=== PATIENT | male | born 1985 | race Caucasian/White ===

== ENCOUNTER → 2016-06-15 | Outpatient (CLI) | payer BC ==
[2016-06-15 13:16] LABS: CHLORIDE,CL 108 mmol/L (98-110); SODIUM,NA 142 mmol/L (136-146)
== END ==
LOC: MW.CHFP 11:29
PROVIDERS: ATTEND Student in an Organized Health Care Education/Training Program
DX: Z00.00 Encounter for general adult medical examination without abnormal findings (principal)
CPT/HCPCS: 36415; 80053; 80061; 84443; 85027

== ENCOUNTER 2020-08-20 14:59 | Observation (INO) | payer BC ==
[2020-08-20] MEDS: Morphine 2 MG/ML SYRINGE IVPUSH PRN ×3 (16:38→22:54)
[2020-08-20] MEDS: Piperacillin/Tazobactam 3.375 GM in Sodium Chloride 0.9% 50 ML IV SCH ×2 (16:43→22:57)
[2020-08-20] MEDS: Lactated Ringers 1,000 ML IV SCH (17:15)
[2020-08-21] MEDS: Lactated Ringers 1,000 ML IV SCH (02:14)
[2020-08-21] MEDS: Piperacillin/Tazobactam 3.375 GM in Sodium Chloride 0.9% 50 ML IV SCH ×3 (05:01→17:12)
[2020-08-21] MEDS ORDERED: Midazolam 1 MG/ML 2 ML SDV ONE (06:57)
[2020-08-21] MEDS ORDERED: Propofol 200 MG/20 ML SDV ONE (06:57)
[2020-08-21] MEDS ORDERED: fentaNYL 250 MCG/5 ML SDV ONE ×2 (06:57→08:36)
[2020-08-21] MEDS ORDERED: Lidocaine 2% 5 ML SDV ONE (06:58)
[2020-08-21] MEDS ORDERED: Ondansetron 4 MG/2 ML SDV ONE (06:58)
[2020-08-21] MEDS ORDERED: Sugammadex Sodium 200 MG/2 ML VIAL ONE (06:58)
[2020-08-21] MEDS ORDERED: Glycopyrrolate 0.2 MG/ML SDV ONE (06:58)
[2020-08-21] MEDS ORDERED: Rocuronium Bromide 50 MG/5 ML Syringe ONE ×2 (06:58→08:09)
[2020-08-21] MEDS ORDERED: Ketorolac 30 MG/ML SDV ONE (06:58)
[2020-08-21] MEDS ORDERED: Indocyanine Green 25 MG SDV ONE (07:19)
--- NOTE | 2020-08-21 07:29 | PCM.PREANE ---
Preanesthetic Assessment - Anesthesia/Transfusion/Family Hx Anesthesia History: Prior Anesthesia Without Reaction Family History of Anesthesia Reaction: No Transfusion History: No Prior Transfusion(s) - Physical Assessment NPO Status Date: 08/21/20 NPO Status Time: 00:01 Vital Signs: Last Vital Signs Temp 98.2 F 08/21/20 04:00 Pulse 80 08/21/20 04:00 Resp 18 08/21/20 04:00 BP 113/65 08/21/20 04:00 Pulse Ox 98 08/21/20 04:00 Height: 6 ft Weight: 287 lb 9.6 oz ASA Class: 2 Airway Class: Mallampati = 3 Dentition: Reports: Normal Dentition ROM/Head Extension: Limited/Partial Lungs: Normal Respiratory Effort Cardiovascular: Regular Rhythm - Allergies Allergies/Adverse Reactions: Allergies Allergy/AdvReac Type Severity Reaction Status Date / Time ceftriaxone sodium Allergy Hives Verified 08/20/20 15:47 [From Rocephin] - Acknowledgements Anesthesia Type Planned: General Anesthesia Pt an Appropriate Candidate for the Planned Anesthesia: Yes Alternatives and Risks of Anesthesia Discussed w Pt/Guardian: Yes Pt/Guardian Understands and Agrees with Anesthesia Plan: Yes Additional Comments: nopo after mn hilary no cv problems tob none etoh rare hayfever obesity bmi 39 par no questions PreAnesthesia Questionnaire Gastrointestinal History: Reports: GERD Other Gastrointestinal History: heartburn Endocrine/Metabolic History: Reports: Obesity/BMI 30+ - Infectious Disease History Infectious Disease History: Reports: Chicken Pox Other Infectious Disease History: Chicken pox as a child - Past Surgical History Other Musculoskeletal Surgeries/Procedures:: Right forearm surgery for fx with steel plate and 7 screws; knee surgery for torn meniscus - SUBSTANCE USE Tobacco Use Status *Q: Never Tobacco User Second Hand Smoke Exposure: No Recreational Drug Use History: No - HOME MEDS Home Medications: Home Meds Omeprazole [Prilosec] 20 mg PO DAILY 08/19/14 [History] - CURRENT (IN HOUSE) MEDS Current Meds: Current Medications Lactated Ringer's (Ringers, Lactated) 1,000 mls @ 125 mls/hr IV ASDIRECTED [facility] Last Admin: 08/21/20 02:14 Dose: 125 mls/hr Documented by: Piperacillin Sod/Tazobactam (Sod 3.375 gm/ Sodium Chloride) 50 mls @ 100 mls/hr IV Q6H [facility] Last Admin: 08/21/20 05:01 Dose: 100 mls/hr Documented by: Morphine Sulfate (Morphine 2 Mg/Ml Syringe) 2 mg IVPUSH Q1H PRN PRN Reason: Pain (severe 7-10) Last Admin: 08/20/20 22:54 Dose: 2 mg Documented by: Discontinued Medications Fentanyl (Fentanyl 250 Mcg/5 Ml Sdv) Confirm Administered Dose 250 mcg .ROUTE .STK-MED ONE Stop: 08/21/20 06:58 Glycopyrrolate (Glycopyrrolate 0.2 Mg/Ml Sdv) Confirm Administered Dose 0.2 mg .ROUTE .STK-MED ONE Stop: 08/21/20 06:59 Indocyanine Green (Indocyanine Green 25 Mg Sdv) Confirm Administered Dose 25 mg .ROUTE .STK-MED ONE Stop: 08/21/20 07:20 Ketorolac Tromethamine (Ketorolac 30 Mg/Ml Sdv) Confirm Administered Dose 30 mg .ROUTE .STK-MED ONE Stop: 08/21/20 06:59 Lidocaine (Lidocaine 2% 5 Ml Sdv) Confirm Administered Dose 5 ml .ROUTE .STK-MED ONE Stop: 08/21/20 06:59 Midazolam HCl (Midazolam 1 Mg/Ml 2 Ml Sdv) Confirm Administered Dose 2 mg .ROUTE .STK-MED ONE Stop: 08/21/20 06:58 Ondansetron HCl (Ondansetron 4 Mg/2 Ml Sdv) Confirm Administered Dose 4 mg .ROUTE .STK-MED ONE Stop: 08/21/20 06:59 Propofol (Propofol 200 Mg/20 Ml Sdv) Confirm Administered Dose 200 mg .ROUTE .STK-MED ONE Stop: 08/21/20 06:58 Rocuronium [place] (Rocuronium [place] 50 Mg/5 Ml Syringe) Confirm Administered Dose 50 mg .ROUTE .STK-MED ONE Stop: 08/21/20 06:59 Sugammadex Sodium (Sugammadex Sodium 200 Mg/2 Ml Vial) Confirm Administered Dose 200 mg .ROUTE .STK-MED ONE Stop: 08/21/20 06:59
[2020-08-21] MEDS ORDERED: ceFAZolin 1 GM Vial ONE (07:32)
[2020-08-21] MEDS ORDERED: Bupivacaine 0.5% 30 ML SDV ONE (07:32)
[2020-08-21] MEDS ORDERED: Acetaminophen 1,000 MG in Premix Bag 1 BAG IV PRN (08:27)
[2020-08-21] MEDS ORDERED: fentaNYL 100 MCG/2 ML SDV IVPUSH PRN (08:27)
[2020-08-21] MEDS ORDERED: Acetaminophen 325 MG Tab PO PRN (10:00)
[2020-08-21] MEDS ORDERED: Ondansetron 4 MG/2 ML SDV IVPUSH PRN (10:00)
[2020-08-21] MEDS ORDERED: Lactated Ringers 1,000 ML IV SCH (10:00)
--- NOTE | 2020-08-21 10:09 | PCM.OPNOTE ---
- General Post-Op/Procedure Note Date of Surgery/Procedure: 08/21/20 Operative Procedure(s): Laparoscopic cholecystectomy Pre Op Diagnosis: Acute cholecystitis with cholelithiasis Post-Op Diagnosis: Severe acute cholecystitis with cholelithiasis Anesthesia Technique: General ET Tube (ASA II) Primary Surgeon: Nick Howard Fluid Replacement, Intraop: 2,000 Output, Urine Amount: 200 EBL in mLs: 50 Condition: Good Free Text/Narrative:: Intake & Output 08/20/20 08/21/20 08/21/20 19:59 03:59 11:59 Intake Total 360 450 Output Total 550 1680 Balance -190 -1230 DICTATION 799063 CPT CODE 93096
[2020-08-21] MEDS: Morphine 2 MG/ML SYRINGE IVPUSH PRN ×2 (10:37→13:33)
--- NOTE | 2020-08-21 10:57 | PCM.POSTAN ---
POST ANESTHESIA ASSESSMENT - MENTAL STATUS Mental Status: Alert (no anesthetic problems), Oriented - VITAL SIGNS Vital Signs: Last Vital Signs Temp 98.2 F 08/21/20 10:05 Pulse 65 08/21/20 10:50 Resp 16 08/21/20 10:50 BP 110/66 08/21/20 10:50 Pulse Ox 96 08/21/20 10:50 - RESPIRATORY Respiratory Status: Respiratory Rate WNL, Airway Patent, O2 Saturation Stable - CARDIOVASCULAR CV Status: Pulse Rate WNL, Blood Pressure Stable - GASTROINTESTINAL GI Status: No Symptoms - POST OP HYDRATION Hydration Status: Adequate & Stable
[2020-08-21] MEDS: Acetaminophen/oxyCODONE 325-5 MG Tab PO PRN (20:15)
[2020-08-22] MEDS: Morphine 2 MG/ML SYRINGE IVPUSH PRN (00:13)
[2020-08-22] MEDS: Acetaminophen/oxyCODONE 325-5 MG Tab PO PRN ×2 (03:31→09:31)
--- NOTE | 2020-08-22 07:03 | PCM48HPAN ---
Post Anesthesia Note - EVALUATION WITHIN 48HRS OF ANESTHETIC Vital Signs in Normal Range: Yes Patient Participated in Evaluation: Yes Respiratory Function Stable: Yes Airway Patent: Yes Cardiovascular Function Stable: Yes Hydration Status Stable: Yes Pain Control Satisfactory: Yes Nausea and Vomiting Control Satisfactory: Yes Mental Status Recovered: Yes Vital Signs: Last Vital Signs Temp 36.8 C 08/22/20 03:34 Pulse 78 08/22/20 03:34 Resp 19 08/22/20 03:34 BP 116/64 08/22/20 03:34 Pulse Ox 94 L 08/22/20 03:34
[2020-08-22 07:27] VITALS: BP 100/57; PULSE 77
--- NOTE | 2020-08-22 09:48 | OR ---
SURGEON: Nick Howard M.D. DATE OF PROCEDURE: 08/21/2020 OPERATION PERFORMED: Laparoscopic cholecystectomy. PRIMARY SURGEON: Nick Howard M.D. ANESTHESIA: General endotracheal. ASA CLASSIFICATION: II. PREOPERATIVE DIAGNOSIS: Acute cholecystitis with cholelithiasis. POSTOPERATIVE DIAGNOSIS: Severe acute cholecystitis with cholelithiasis. ESTIMATED BLOOD LOSS: 50 mL. INTRAOPERATIVE FLUID REPLACEMENT: 2000 mL of crystalloid. INTRAOPERATIVE URINE OUTPUT: 200 mL. DESCRIPTION OF PROCEDURE: The patient was taken to the operating room and placed on the operating table in the supine position. Time-out was called for appropriate identification of the patient and procedure. Thigh-high TEDs and sequential compression boots were placed. Following satisfactory attainment of general endotracheal anesthesia, the West catheter was placed in the patient's urinary bladder. The abdomen was prepped with ChloraPrep solution. Sterile drapes were applied. The skin just above the umbilicus was infiltrated with 0.5% Marcaine solution. Skin incision was made and deepened through the subcutaneous tissue obtaining hemostasis with the use of electrocautery. The Veress needle was introduced into the peritoneal cavity. The saline drop test was positive. Carbon dioxide pneumoperitoneum was established with the release set at 13 cm of water. Once a satisfactory pneumoperitoneum was established, 5 mm camera and port were placed through the supraumbilical incision. The patient was now positioned with his feet down and rolled to the left. Under camera vision, 12 mm subxiphoid, 5 mm midclavicular, and 5 mm anterior axillary ports were placed. Each incision had preemptively been infiltrated with 0.5% Marcaine solution. With all ports in place and the patient positioned with his feet down and rolled to the left, adhesions were taken down from the omentum to the gallbladder. It was necessary to use the Harmonic scalpel to do this. Once that was taken down, the gallbladder was then decompressed with white bile and a minimal amount of purulent material. I was then able to grasp the gallbladder and maneuver it. Again, there were severe inflammatory changes noted. Additional dissection was carried down in the cholecystohepatic triangle and the cystic artery was identified and doubly clipped before division with the laparoscopic Metzenbaum scissors. It was very difficult even with the use of indocyanine green to identify the cystic duct, and it was felt that it was best to do a dome-down technique. Multiple attempts were made to get a good critical view and we always felt we had a good critical view, but nevertheless, using electrocautery, we did a dome-down technique until the gallbladder was completely suspended from the cystic duct. My partner, Dr. Long, did come into the operating room and looked at the anatomy and confirmed position. We again tried to use the indocyanine green, but it did not light up well. Nevertheless, we felt that we had completely encircled and mobilized the cystic duct and this structure was now multiply clipped and divided with the laparoscopic Metzenbaum scissors. The gallbladder was promptly placed in an Endopouch. The right upper quadrant was irrigated with a liter of saline solution and all fluid aspirated. Surgicel was placed into the bed of the gallbladder. There was no significant oozing and no bile was seen coming from the bed of the gallbladder. The right hemidiaphragm was then irrigated with 250 mL of saline containing 20 mL of 0.5% Marcaine solution. Under camera vision, the Endopouch containing gallbladder and subxiphoid port were removed. Again, under camera vision, the 5 mm midclavicular and anterior axillary ports were removed, and finally, the supraumbilical and camera port were removed. The wounds were inspected for hemostasis and there was no bleeding. The supraumbilical and subxiphoid incisions were closed in two layers approximating the subcutaneous tissue with 3-0 Vicryl and the skin with subcuticular 4-0 Monocryl. The anterior axillary and midclavicular incisions were closed with subcuticular 4-0 Monocryl. All incisions were Steri-Stripped and dressed with sterile Tegaderm pads. Sponge, needle, and instrument counts were all correct. The West catheter was removed prior to emergence from anesthesia. Following emergence from anesthesia and extubation, the patient was taken to recovery room in stable condition. ARACELI / SERGIO /[id number]
== END 2020-08-22 11:25 | disposition home or self-care (01) ==
LOC: MW.MS 14:59
PROVIDERS: ADMIT Surgery; ATTEND Surgery
DX: K80.12 Calculus of gallbladder with acute and chronic cholecystitis without obstruction (principal); K21.9 Gastro-esophageal reflux disease without esophagitis; E78.2 Mixed hyperlipidemia; E66.9 Obesity, unspecified; E55.9 Vitamin D deficiency, unspecified; F17.290 Nicotine dependence, other tobacco product, uncomplicated; Z88.8 Allergy status to other drugs, medicaments and biological substances; Z79.899 Other long term (current) drug therapy; Z68.39 Body mass index [BMI] 39.0-39.9, adult
CPT/HCPCS: 47562; A9270; J0131; J1885; J2250; J2270; J2543; J2704; J3010; J3490; J7120; 00790; 88304; 96365; 96366; 96375; 96376; G0378; J0690; J2405

== ENCOUNTER 2020-08-25 04:11 | Emergency (ER) | payer BC ==
[2020-08-25] MEDS ORDERED: Sodium Chloride 0.9% 1,000 ML IV ONE (04:33)
[2020-08-25] MEDS ORDERED: Morphine 4 MG/ML Syringe IVPUSH ONE ×2 (04:33→06:36)
--- NOTE | 2020-08-25 04:37 | EDM.PDOC ---
ED HPI GENERAL MEDICAL PROBLEM - General Chief Complaint: Abdominal Pain Stated Complaint: SICK Time Seen by Provider: 08/25/20 04:27 Source of Information: Reports: Patient History Limitations: Reports: No Limitations - History of Present Illness INITIAL COMMENTS - FREE TEXT/NARRATIVE: Patient is a 35-year-old male who recently had his gallbladder removed 3 days ago presents today for abdominal cramping. Patient this morning had intense cramp this may work with taking deep breaths or talking. Patient states is radiating to the shoulder. Patient denies any nausea vomiting decreased p.o. intake. Patient denies any urinary symptoms as well. Patient denies any fevers or chills or other complaints. right abdomen Pain Score (Numeric/FACES): 10 - Related Data Allergies Allergy/AdvReac Type Severity Reaction Status Date / Time ceftriaxone sodium Allergy Hives Verified 08/25/20 04:25 [From Rocephin] Home Meds: Home Meds Omeprazole [Prilosec] 20 mg PO DAILY 08/19/14 [History] Hydroco/Apap 08/25/20 [History] Past Medical History Gastrointestinal History: Reports: GERD Other Gastrointestinal History: heartburn Endocrine/Metabolic History: Reports: Obesity/BMI 30+ - Infectious Disease History Infectious Disease History: Reports: Chicken Pox Other Infectious Disease History: Chicken pox as a child - Past Surgical History Other Musculoskeletal Surgeries/Procedures:: Right forearm surgery for fx with steel plate and 7 screws; knee surgery for torn meniscus Social & Family History - Family History Family Medical History: No Pertinent Family History - Caffeine Use Caffeine Use: Reports: Coffee, Energy Drinks Caffeine Use Comment: sometimes ED ROS GENERAL - Review of Systems Review Of Systems: See Below Constitutional: Reports: No Symptoms HEENT: Reports: No Symptoms Respiratory: Reports: No Symptoms Cardiovascular: Reports: No Symptoms Endocrine: Reports: No Symptoms GI/Abdominal: Reports: Abdominal Pain : Reports: No Symptoms Musculoskeletal: Reports: No Symptoms Skin: Reports: No Symptoms Neurological: Reports: No Symptoms Psychiatric: Reports: No Symptoms Hematologic/Lymphatic: Reports: No Symptoms Immunologic: Reports: No Symptoms ED EXAM, GI/ABD - Physical Exam Exam: See Below Exam Limited By: No Limitations General Appearance: Alert, WD/WN, Mild Distress Respiratory/Chest: No Respiratory Distress, Lungs Clear, Normal Breath Sounds Cardiovascular: Normal Peripheral Pulses, Regular Rate, Rhythm GI/Abdominal Exam: Normal Bowel Sounds, Soft, Non-Tender Extremities: Normal Inspection Neurological: Alert, Oriented, Normal Cognition #1 Interpretation EKG Date: 08/25/20 Time: 04:12 Rhythm: NSR Rate (Beats/Min): 88 Eure: Normal ST-T: Normal Course - Vital Signs Last Recorded V/S: Last Vital Signs Temp 98.8 F 08/25/20 04:11 Pulse 104 H 08/25/20 06:14 Resp 16 08/25/20 06:14 BP 151/96 H 08/25/20 06:14 Pulse Ox 92 L 08/25/20 06:14 - Orders/Labs/Meds Orders: Active Orders 24 hr Category Date Time Status EKG 12 Lead [EKG Documentation Completion] [RC] STAT Care 08/25/20 04:35 Active Piperacillin/Tazobactam [Piperacil-Tazobact] 3.375 gm Med 08/25/20 06:36 Active Sodium Chloride 0.9% [Normal Saline] 50 ml IV ONETIME Medication Orders Piperacillin Sod/Tazobactam (Sod 3.375 gm/ Sodium Chloride) 50 mls @ 100 mls/hr IV ONETIME ONE Stop: 08/25/20 07:05 Labs: Laboratory Tests 08/25/20 08/25/20 Range/Units 04:16 04:16 WBC 10.51 (4.0-11.0) K/uL RBC 5.02 (4.50-5.90) M/uL Hgb 14.1 (13.0-17.0) g/dL Hct 42.5 (38.0-50.0) % MCV 84.7 (80.0-98.0) fL MCH 28.1 (27.0-32.0) pg MCHC 33.2 (31.0-37.0) g/dL RDW Std Deviation 43.6 (28.0-62.0) fl RDW Coeff of Anil 14 (11.0-15.0) % Plt Count 284 (150-400) K/uL MPV 10.20 (7.40-12.00) fL Neut % (Auto) 67.3 (48.0-80.0) % Lymph % (Auto) 20.9 (16.0-40.0) % [place] % (Auto) 9.7 (0.0-15.0) % Eos % (Auto) 1.9 (0.0-7.0) % Baso % (Auto) 0.2 (0.0-1.5) % Neut # (Auto) 7.1 H (1.4-5.7) K/uL Lymph # (Auto) 2.2 (0.6-2.4) K/uL [place] # (Auto) 1.0 H (0.0-0.8) K/uL Eos # (Auto) 0.2 (0.0-0.7) K/uL Baso # (Auto) 0.0 (0.0-0.1) K/uL Nucleated RBC % 0.0 /100WBC Nucleated RBCs # 0 K/uL Sodium 139 (136-148) mmol/L Potassium 3.6 (3.5-5.1) mmol/L Chloride 101 (98-107) mmol/L Carbon Dioxide 28.3 (21.0-32.0) mmol/L BUN 9 (7.0-18.0) mg/dL Creatinine 1.1 (0.8-1.3) mg/dL Est Cr Clr Drug Dosing 92.41 mL/min Estimated GFR (MDRD) > 60.0 ml/min Glucose 103 (74-106) mg/dL Calcium 9.1 (8.5-10.1) mg/dL Total Bilirubin 0.6 (0.2-1.0) mg/dL AST 18 (15-37) IU/L ALT 29 (14-63) IU/L Alkaline Phosphatase 111 (46-116) U/L Creatine Kinase 47 (26-308) U/L Total Protein 8.0 (6.4-8.2) g/dL Albumin 3.0 L (3.4-5.0) g/dL Globulin 5.0 H (2.6-4.0) g/dL Albumin/Globulin Ratio 0.6 L (0.9-1.6) Lipase 67 L (73-393) U/L Meds: Medications Generic Name Dose Route Start Last Admin Trade Name Freq PRN Reason Stop Dose Admin Piperacillin Sod/Tazobactam 50 mls @ 100 mls/hr 08/25/20 06:36 Sod 3.375 gm/ Sodium Chloride IV 08/25/20 07:05 ONETIME ONE Discontinued Medications Generic Name Dose Route Start Last Admin Trade Name Goyo PRN Reason Stop Dose Admin Sodium Chloride 1,000 mls @ 999 mls/hr 08/25/20 04:33 08/25/20 04:43 Normal Saline IV 08/25/20 05:33 999 mls/hr .BOLUS ONE Administration Iopamidol 120 ml 08/25/20 05:44 08/25/20 05:44 Iopamidol 755 Mg/Ml 500 Ml Multipack Bottle IVPUSH 08/25/20 05:45 120 ml ONETIME STA Administration Morphine Sulfate 4 mg 08/25/20 04:33 08/25/20 04:44 Morphine 4 Mg/Ml Syringe IVPUSH 08/25/20 04:34 4 mg ONETIME ONE Administration Morphine Sulfate 4 mg 08/25/20 06:36 Morphine 4 Mg/Ml Syringe IVPUSH 08/25/20 06:37 ONETIME ONE - Re-Assessments/Exams Free Text/Narrative Re-Assessment/Exam: 08/25/20 06:42 Patient has a possible abscess on his CAT scan we talked to Dr. Schmidt here and he recommended transferring. We spoke to Dr. BHATIA in [place] surgeon who recommends a nd the patient ER for evaluation as he may need a HIDA scan. We spoke to the ER physician Dr. Marte who saw the patient. Patient will be transferred. 08/25/20 06:48 Departure - Departure Time of Disposition: 06:42 Disposition: DC/Tfer to Acute Hospital 02 Condition: Good Clinical Impression: Gallbladder abscess - Discharge Information *PRESCRIPTION DRUG MONITORING PROGRAM REVIEWED*: Not Applicable *COPY OF PRESCRIPTION DRUG MONITORING REPORT IN PATIENT JANNET: Not Applicable Referrals: Janelle Monroy NP [Primary Care Provider] - Forms: ED Department Discharge Critical Care Note - Critical Care Note Total Time (mins): 40 Comments: Critical Care Procedure Note Authorized and Performed by: Dr. Ruiz Total critical care time: Approximately Due to a high probability of clinically significant, life threatening deterioration, the patient required my highest level of preparedness to intervene emergently and I personally spent this critical care time directly and personally managing the patient. This critical care time included obtaining a history; examining the patient; pulse oximetry; ordering and review of studies; arranging urgent treatment with development of a management plan; evaluation of patient's response to treatment; frequent reassessment; and, discussions with other providers. This critical care time was performed to assess and manage the high probability of imminent, life-threatening deterioration that could result in multi-organ failure. It was exclusive of separately billable procedures and treating other patients and teaching time. Sepsis Event Note (ED) - Evaluation Sepsis Screening Result: Possible Sepsis Risk - Focused Exam Vital Signs: Vital Signs Temp Pulse Resp BP Pulse Ox 08/25/20 06:14 104 H 16 151/96 H 92 L 08/25/20 04:11 98.8 F 91 26 H 147/88 H 95 - My Orders Last 24 Hours: My Active Orders 08/25/20 04:35 EKG 12 Lead [EKG Documentation Completion] [RC] STAT 08/25/20 06:36 Piperacillin/Tazobactam [Piperacil-Tazobact] 3.375 gm Sodium Chloride 0.9% [Normal Saline] 50 ml IV ONETIME - Assessment/Plan Last 24 Hours: My Active Orders 08/25/20 04:35 EKG 12 Lead [EKG Documentation Completion] [RC] STAT 08/25/20 06:36 Piperacillin/Tazobactam [Piperacil-Tazobact] 3.375 gm Sodium Chloride 0.9% [Normal Saline] 50 ml IV ONETIME Plan: Patient is a 35-year-old male presents today for postop abdominal pain. Patient not look to be in any severe distress but has pain with talking or deep breath. Will obtain x-ray of the chest CT abdomen pelvis provide pain control and reassess.
[2020-08-25 04:48] LABS: BLOOD UREA NITROGEN,BUN 9 mg/dL (7.0-18.0); CARBON DIOXIDE,CO2 28.3 mmol/L (21.0-32.0); CHLORIDE,CL 101 mmol/L (98-107); GLUCOSE RANDOM 103 mg/dL (74-106); LIPASE 67 U/L (73-393); POTASSIUM,K 3.6 mmol/L (3.5-5.1); SODIUM,NA 139 mmol/L (136-148)
[2020-08-25] MEDS ORDERED: Iopamidol 755 MG/ML 500 ML Multipack Bottle IVPUSH STA ×2 (05:31→05:44)
--- NOTE | 2020-08-25 06:26 | CT ---
INDICATION: Postop abdominal pain. Recent cholecystectomy. Abdominal distension. COMPARISON: CT of the abdomen without contrast from 08/20/2020 TECHNIQUE: CT examination of the abdomen and pelvis was performed with the uneventful intravenous administration of 100 cc of Omnipaque 350 while 2.5 mm thick axial sections were obtained from the lung bases through the pubic symphysis. Oral contrast was not administered. Please note that all CT scans at this facility use dose modulation, iterative reconstruction, and/or weight-based dosing when appropriate to reduce radiation dose to as low as reasonably achievable. FINDINGS: In the abdomen, the mildly enlarged liver is slightly increased in size, now measuring 21.9 centimeters, previously 21.9 centimeters in the same area. There is slightly increased moderate splenomegaly, the spleen measuring 16.7 centimeters in length, previously 15.5 centimeters in length in the same region. The pancreas and adrenals are normal in appearance. The kidneys are normal in appearance. The gallbladder has been removed during the interval. The gallbladder fossa is filled with a heterogeneous collection of fluid and gas measuring 5.5 x 3.9 x 3.9 centimeters, consistent with a postoperative abscess. There is prominent inflammatory reaction inferior to the gallbladder fossa extending into the right pericolic gutter. There is a tiny droplets of free air in the anterior right upper abdomen consistent with recent surgery. There is a small amount of free fluid in the pelvis, also consistent with recent surgery. The abdominal aorta is normal in caliber with no sign of dilatation. There is no sign of retroperitoneal mass or adenopathy. The stomach, loops of small bowel, and colon in the abdomen are normal in appearance. In the pelvis, the appendix is normal in appearance with no sign of inflammatory process. The loops of small bowel and colon in the pelvis are normal in appearance. The prostate is normal in appearance. The urinary bladder is normal in appearance. There is no sign of pelvic or inguinal mass or adenopathy. There is new moderate right greater than left posterior basilar atelectasis. There is no sign of any pleural effusion. There is stable moderate L4-5 and L5-S1 disc degenerative disease. Again seen is minimal scoliosis of the lumbar spine convex towards the left. I discussed the findings with Dr. Joseph bloom 0620 hours on 08/25/2020 IMPRESSION: CT of the abdomen shows a new large abscess in the gallbladder fossa following cholecystectomy. This measures 5.5 x 3.9 x 3.9 centimeters and is associated with prominent inflammatory stranding inferior to the gallbladder fossa, extending into the pericolic gutter. Small amounts of free intra-abdominal air anteriorly in the right upper quadrant consistent with recent surgery. Small amount of free fluid in the pelvis, also consistent with recent surgery. Slight increase in moderate splenomegaly. Slight increase in mild hepatomegaly. CT of the pelvis shows no additional abnormality. Please note that all CT scans at this facility use dose modulation, iterative reconstruction, and/or weight-based dosing when appropriate to reduce radiation dose to as low as reasonably achievable. Dictated by Gavin Mcduffie MD @ 08/25/2020 6:25:[address] Gavin Mcduffie @ Aug 25 2020 6:25AM
[2020-08-25] MEDS ORDERED: Piperacillin/Tazobactam 3.375 GM in Sodium Chloride 0.9% 50 ML IV ONE (06:36)
[2020-08-25] MEDS ORDERED: HYDROmorphone 1 MG/ML Syringe IVPUSH ONE ×3 (07:20→09:22)
[2020-08-25 09:05] VITALS: PULSE 104
[2020-08-25 09:43] VITALS: BP 104/69
== END 2020-08-25 09:47 ==
LOC: MW.ED 04:11
DX: K81.0 Acute cholecystitis (principal); K21.9 Gastro-esophageal reflux disease without esophagitis; E66.9 Obesity, unspecified; Z68.30 Body mass index [BMI] 30.0-30.9, adult; Z88.1 Allergy status to other antibiotic agents
CPT/HCPCS: 36415; 74177; 80053; 82550; 83690; 85025; 93005; 96365; 96375; 96376; 99285; J1170; J2270; J2543; J7030; Q9967; 93010; 99291

== ENCOUNTER 2020-08-31 05:36 | Emergency (ER) | payer BC ==
--- NOTE | 2020-08-31 06:01 | EDM.PDOC ---
<Dusty Lozano - Last Filed: 08/31/20 07:11> ED HPI GENERAL MEDICAL PROBLEM - General Chief Complaint: General Stated Complaint: LOW TEMP, SWEATING (RECENT ABCESS) Time Seen by Provider: 08/31/20 05:47 - History of Present Illness INITIAL COMMENTS - FREE TEXT/NARRATIVE: History of present illness: [] The patient reports he woke up twice tonight with diaphoresis soaking his bed sheets. He checked his temperature and it was 95. He got home 28 August 2020 after being admitted and [place] [facility] for an abscess in the space that remained after recent cholecystectomy. He went home in improved condition. Review of systems: As per history of present illness and below otherwise all systems reviewed and negative. Past medical history: As per history of present illness and as reviewed below otherwise nonco ntributory. Surgical history: As per history of present illness and as reviewed below otherwise noncontributory. Social history: No reported history of drug or alcohol abuse. Family history: As per history of present illness and as reviewed below otherwise noncontributory. Physical exam: Constitutional - well developed, well-nourished and in no acute distress HEENT - normocephalic, no evidence of trauma - external nose and mouth normal - no mass in neck and no JVD - mucosae moist EYES - full EOM, PERRL, no icterus - no evidence of inflammation, injection, or drainage Respiratory - no respiratory distress, equal bilateral expansion, lungs clear to auscultation and no abnormal lung sounds Cardiovascular - Regular Rhythm with S1 and S2 appreciated and no murmur, gallop or rub. GI -2 drainage sites in the anterior abdomen appear uninflamed. Abdomen soft without distension or organomegaly - normal bowel sounds - no guard or rebound Musculoskeletal no gross deformity of long bones or joints - no tenderness, swelling or edema Neurologic - Alert and oriented times four - CN II-XII grossly intact - motor sensory and coordination symmetrically normal Psychiatric - appropriate mood and affect with normal thought content Hematologic - No petechiae or purpura - mucosa appropriate color and sclera not pale - normal nail bed color and refill Integument - no rash or evidence of trauma - normal turgor Diagnostics: [] Therapeutics: [] Impression: [] Plan: [] Definitive disposition and diagnosis as appropriate pending reevaluation and review of above. Right Lower Abdomen Pain Score (Numeric/FACES): 4 - Related Data Allergies Allergy/AdvReac Type Severity Reaction Status Date / Time ceftriaxone sodium Allergy Hives Verified 08/25/20 04:25 [From Rocephin] Home Meds: Home Meds Omeprazole [Prilosec] 20 mg PO DAILY 08/19/14 [History] Hydroco/Apap 08/25/20 [History] Past Medical History Gastrointestinal History: Reports: GERD Other Gastrointestinal History: heartburn Endocrine/Metabolic History: Reports: Obesity/BMI 30+ - Infectious Disease History Infectious Disease History: Reports: Chicken Pox Other Infectious Disease History: Chicken pox as a child - Past Surgical History Other Musculoskeletal Surgeries/Procedures:: Right forearm surgery for fx with steel plate and 7 screws; knee surgery for torn meniscus Social & Family History - Family History Family Medical History: No Pertinent Family History - Caffeine Use Caffeine Use: Reports: Coffee, Energy Drinks Caffeine Use Comment: sometimes Course - Vital Signs Text/Narrative:: 10 05 endorsed to my partner Christal my shift. He will help make a disposition after the ultrasound. Departure - Departure Disposition: Home, Self-Care 01 Clinical Impression: Gallbladder abscess, Hypothermia due to non-environmental cause - Discharge Information Instructions: Percutaneous Abscess Drain, Percutaneous Abscess Drain, Care After Referrals: Janelle Monroy NP [Primary Care Provider] - Forms: ED Department Discharge Additional Instructions: You have been seen and evaluated in the ER today secondary to concerns of sepsis/infection in light of your recent complicated course with your postoperative abscess. At this time, your blood tests, ultrasound, and CT scan did not reveal any significant abnormality. I have discussed the case with Dr. Rodriguez who is covering for Dr. Howard and he agrees that at this time, we should continue with the current antibiotics and current plan of care. Please continue taking your ciprofloxacin and metronidazole. Please return to the ER if you start developing any fevers or if you start having any new or concerning symptoms or worsening abdominal pain or discomfort. Please keep your appointment with your family doctor on Tuesday as well as your appointment on the up in the hospital. The following information is given to patients seen in the emergency department who are being discharged to home. This information is to outline your options for follow-up care. We provide all patients seen in our emergency department with a follow-up referral. The need for follow-up, as well as the timing and circumstances, are variable depending upon the specifics of your emergency department visit. If you don't have a primary care physician on staff, we will provide you with a referral. We always advise you to contact your personal physician following an emergency department visit to inform them of the circumstance of the visit and for follow-up with them and/or the need for any referrals to a consulting specialist. The emergency department will also refer you to a specialist when appropriate. This referral assures that you have the opportunity for follow-up care with a specialist. All of these measure are taken in an effort to provide you with optimal care, which includes your follow-up. Under all circumstances we always encourage you to contact your private physician who remains a resource for coordinating your care. When calling for follow-up care, please make the office aware that this follow-up is from your recent emergency room visit. If for any reason you are refused follow-up, please contact the [facility] Emergency Department at and asked to speak to the emergency department charge nurse. [facility] [address] [place] [id number] [place] [address] Sepsis Event Note (ED) - Evaluation Sepsis Screening Result: No Definite Risk <Percy Montelongo - Last Filed: 08/31/20 10:29> ED HPI GENERAL MEDICAL PROBLEM - History of Present Illness INITIAL COMMENTS - FREE TEXT/NARRATIVE: This is a 35-year-old gentleman who presents ER today secondary to having 2 episodes of night sweats and a temperature of 95 degrees last night. Patient's recent medical course has been complicated with a cholecystectomy performed approximately August 20. Patient reports on August 25 he came to the ED and was identified with a postoperative abscess that required transfer to [facility]. Patient reports that he went up to [facility] where they repeated the CT scan and identified 2 areas of abscess formation that required interve ntional radiology placement of 2 drains. Patient reports that he was doing fairly well was discharged from the hospital 3 days ago on ciprofloxacin and Flagyl. Patient reports that over the last 3 days his pain has significantly improved and he is currently just taking ibuprofen and acetaminophen. Patient has been compliant with his antibiotics. Patient reports he has been tolerating p.o. solids and liquids well and reports that his energy level has slowly been improving. Patient reports that last night with the first night where he has had 2 episodes of diaphoresis and when his checked his temperature it was 95. After consulting with telemedicine they were instructed to come to the ED for evaluation of possible sepsis given his low temperature and the diaphoresis and his recent history of abscess formation. Patient reports no significant abdominal pain or discomfort other than local pain at the site of the URIEL. Patient denies any recent fevers, shakes, chills, vomiting, diarrhea, urinary changes. Patient has any recent cough cold or rhinorrhea. Patient denies any shortness of breath. Ultrasound was obtained here in the ED which did not reveal any significant fluid collection. A follow-up CT scan was then ordered which revealed postsurgical changes of cholecystectomy. There is a drain within the gallbladder fossa. No residual collection within the gallbladder fossa was identified. 2. Additional drain underlying the right hemidiaphragm. There is some residual fluid underlying the right hemidiaphragm adjacent to the liver and adjacent to that drain. Correlation with drain function was suggested. reports that she has been getting less than 20 mL of fluid yesterday and less than 10 mL of fluid this morning. 3. Small gas and fluid-containing pocket along the anterior aspect of the medial aspect of the left hepatic lobe. There was no biliary ductal dilatation. There is a small right pleural effusion which is new. Increased atelectasis with both lung bases. This patient was seen and evaluated during the 2019 SARS-CoV-2 novel coronavirus pandemic period. Community viral transmission is ongoing at time of this encounter and the emergency department is operating under pandemic response procedures. Constitutional: Patient is oriented to person, place, and time. Appears well- developed and well-nourished. No distress. HEENT: Moist mucous membranes Head: Normocephalic and atraumatic Eyes: Right eye exhibits no discharge. Left eye exhibits no discharge. No scleral icterus Neck: Normal range of motion. No tracheal deviation present. Cardiovascular: Normal rate and regular rhythm. Pulmonary: Effort normal, no respiratory distress. Abd: Soft, nondistended, no rebound/guarding, no psoas or obturator signs, no tenderness at Mcberney's point, no Casillas's sign. Pt does not present with an exam that would be consistent with an acute surgical abdomen at this time, tenderness to palpation at the site of the drains but otherwise nontender benign abdomen. Patient ambulating in the ED with any pain or discomfort. Patient reports he has and feels like he has plenty of energy to ambulate. Musculoskeletal: Normal range of motion Neurologic: Alert and oriented to person, place and time. Skin: Lucky, warm and dry. Psychiatric: Normal mood and affect. Behavior is normal. Judgment and thought content normal. Nursing note and vital signs have been reviewed Assessment and plan: 35-year-old gentleman who presents ER today for concern of infection/sepsis after a complicated course with postoperative wound infection after cholecystectomy requiring drain placements. Patient's drains currently appear to be functioning. He does have approximately 10 cc of drainage from his tubes within the last 24 hours over the liver and approximately 100 mL of drainage from his tube in the gallbladder fossa. I have discussed the case with Dr. Rodriguez who is covering for Dr. Howard at this time. We both agree that at this time, given patient's labs, ultrasound and CT findings and physical exam and complaints that patient is stable for discharge with continuing of his antibiotics and close follow-up. I do not feel that the patient at this time meets observation or inpatient level of care for his current situation and can be managed effectively at home with his . They have good access to care and good follow-up already planned. Patient has an appoint with his PCP on Tuesday and appointment in [facility] for URIEL evaluation on 08 September. I have discussed the plan with the patient and his and they are in complete agreement and will return to the ED they have any new or concerning symptoms including fevers, not feeling well, vomiting or worsening abdominal discomfort. Reassessment at the time of disposition demonstrates that the patient is in no acute distress. The patient has remained stable throughout the entire ED visit and is without objective evidence for acute process requiring urgent in tervention or hospitalization. The patient is stable for discharge, counseling is provided as documented above, discussed symptomatic treatment and specific conditions for return. I have spoken with the patient/caregiver and discussed todays findings, in addition to providing specific details for the plan of care. Questions are answered and there is agreement with the plan. ED ROS GENERAL - Review of Systems Review Of Systems: See Below ED EXAM, GENERAL - Physical Exam Exam: See Below Course - Vital Signs Last Recorded V/S: Last Vital Signs Temp 96.8 F L 08/31/20 08:42 Pulse 81 08/31/20 08:42 Resp 15 08/31/20 08:42 BP 130/62 08/31/20 08:42 Pulse Ox 94 L 08/31/20 08:42 - Orders/Labs/Meds Labs: Laboratory Tests 08/31/20 08/31/20 08/31/20 Range/Units 06:15 06:15 06:20 WBC 13.20 H (4.0-11.0) K/uL RBC 4.69 (4.50-5.90) M/uL Hgb 12.9 L (13.0-17.0) g/dL Hct 39.4 (38.0-50.0) % MCV 84.0 (80.0-98.0) fL MCH 27.5 (27.0-32.0) pg MCHC 32.7 (31.0-37.0) g/dL RDW Std Deviation 44.7 (28.0-62.0) fl RDW Coeff of Anil 15 (11.0-15.0) % Plt Count 433 H (150-400) K/uL MPV 8.90 (7.40-12.00) fL Add Manual Diff YES Neutrophils % (Manual) 80 (48.0-80.0) % Band Neutrophils % 2 % Lymphocytes % (Manual) 10 L (16.0-40.0) % Monocytes % (Manual) 6 (0.0-15.0) % Eosinophils % (Manual) 2 (0.0-7.0) % Nucleated RBC % 0.0 /100WBC Absolute Seg Neuts 10.6 H (1.4-5.7) Band Neutrophils # 0.3 Lymphocytes # (Manual) 1.3 (0.6-2.4) Monocytes # (Manual) 0.8 (0.0-0.8) Eosinophils # (Manual) 0.3 (0.0-0.7) Nucleated RBCs # 0 K/uL Sodium 141 (136-148) mmol/L Potassium 4.1 (3.5-5.1) mmol/L Chloride 104 (98-107) mmol/L Carbon Dioxide 25.8 (21.0-32.0) mmol/L BUN 11 (7.0-18.0) mg/dL Creatinine 0.7 L (0.8-1.3) mg/dL Est Cr Clr Drug Dosing 164.75 mL/min Estimated GFR (MDRD) > 60.0 ml/min Glucose 103 (74-106) mg/dL Calcium 8.8 (8.5-10.1) mg/dL Total Bilirubin 0.5 (0.2-1.0) mg/dL AST 37 (15-37) IU/L ALT 56 (14-63) IU/L Alkaline Phosphatase 141 H (46-116) U/L Total Protein 7.1 (6.4-8.2) g/dL Albumin 2.3 L (3.4-5.0) g/dL Globulin 4.8 H (2.6-4.0) g/dL Albumin/Globulin Ratio 0.5 L (0.9-1.6) Lipase 117 (73-393) U/L Urine Color YELLOW Urine Appearance CLEAR Urine pH 6.5 (5.0-8.0) Ur Specific [place] 1.015 (1.001-1.035) Urine Protein NEGATIVE (NEGATIVE) mg/dL Urine Glucose (UA) NEGATIVE (NEGATIVE) mg/dL Urine Ketones NEGATIVE (NEGATIVE) mg/dL Urine Occult Blood NEGATIVE (NEGATIVE) Urine Nitrite NEGATIVE (NEGATIVE) Urine Bilirubin NEGATIVE (NEGATIVE) Urine Urobilinogen 0.2 (<2.0) EU/dL Ur Leukocyte Esterase NEGATIVE (NEGATIVE) Meds: Medications Discontinued Medications Generic Name Dose Route Start Last Admin Trade Name Freq PRN Reason Stop Dose Admin Hydromorphone HCl 1 mg 08/31/20 06:43 08/31/20 06:57 Hydromorphone 1 Mg/Ml Syringe IVPUSH 08/31/20 06:44 1 mg ONETIME ONE Administration Sodium Chloride 1,000 mls @ 999 mls/hr 08/31/20 07:14 08/31/20 08:11 Normal Saline IV 08/31/20 08:14 999 mls/hr .Bolus ONE Administration Iopamidol 100 ml 08/31/20 08:08 08/31/20 08:09 Iopamidol 755 Mg/Ml 500 Ml Multipack Bottle IVPUSH 08/31/20 08:09 100 ml ONETIME ONE Administration Ondansetron HCl 4 mg 08/31/20 06:44 08/31/20 06:57 Ondansetron 4 Mg/2 Ml Sdv IVPUSH 08/31/20 06:45 4 mg ONETIME ONE Administration Departure - Departure Time of Disposition: 10:19 Condition: Good Sepsis Event Note (ED) - Focused Exam Vital Signs: Vital Signs Temp Pulse Resp BP Pulse Ox 08/31/20 08:42 96.8 F L 81 15 130/62 94 L 08/31/20 06:39 97.6 F 78 17 116/60 95 08/31/20 05:47 97.8 F 77 18 115/73 96
[2020-08-31 06:36] LABS: BLOOD UREA NITROGEN,BUN 11 mg/dL (7.0-18.0); CARBON DIOXIDE,CO2 25.8 mmol/L (21.0-32.0); CHLORIDE,CL 104 mmol/L (98-107); GLUCOSE RANDOM 103 mg/dL (74-106); LIPASE 117 U/L (73-393); POTASSIUM,K 4.1 mmol/L (3.5-5.1); SODIUM,NA 141 mmol/L (136-148)
[2020-08-31] MEDS ORDERED: HYDROmorphone 1 MG/ML Syringe IVPUSH ONE (06:43)
[2020-08-31] MEDS: Ondansetron 4 MG/2 ML SDV IVPUSH ONE ×2 (06:56→06:57)
[2020-08-31] MEDS ORDERED: Sodium Chloride 0.9% 1,000 ML IV ONE (07:14)
[2020-08-31] MEDS ORDERED: Iopamidol 755 MG/ML 500 ML Multipack Bottle IVPUSH ONE (08:08)
--- NOTE | 2020-08-31 08:23 | US ---
For Patients: As a result of the Century Cures Act, medical imaging exams and procedure reports are released immediately into your electronic medical record. You may view this report before your referring provider. If you have questions, please contact your health care provider. HISTORY: Full cystectomy. Pain. Drainage tubes. TECHNIQUE: Limited abdominal ultrasound. COMPARISON: CT 08/25/2020. FINDINGS: The pancreatic tail is obscured by bowel gas. No abnormality involving the visualized portions of the pancreas. No focal liver parenchymal abnormality. The liver size is prominent measuring 20.6 cm. No intrahepatic or extrahepatic biliary ductal dilatation. The extrahepatic bile duct measures 3 mm which is within limits. Cholecystectomy. Heterogeneous echogenicity within the gallbladder fossa. No well-defined fluid collection appreciated by ultrasound. No abnormality involving the included right kidney. IMPRESSION: 1. No well-defined fluid collection seen by ultrasound. 2. No biliary ductal dilatation. 3. Changes of cholecystectomy. Dictated by Manish Muir MD @ 08/31/2020 8:21:[address] Manish Muir @ Aug 31 2020 8:21AM
--- NOTE | 2020-08-31 09:03 | CT ---
For Patients: As a result of the Century Cures Act, medical imaging exams and procedure reports are released immediately into your electronic medical record. You may view this report before your referring provider. If you have questions, please contact your health care provider. HISTORY: Chills. Recent cholecystectomy. Drains in place. TECHNIQUE: Intravenous contrast enhanced CT of the abdomen and pelvis. 100 mL of Isovue-370 intravenous contrast administered. COMPARISON: 08/20/2020. FINDINGS: The patient is status post cholecystectomy. The biliary system is within normal limits for postcholecystectomy state. There is a drain present within the gallbladder fossa. No residual fluid collection is present within the gallbladder fossa itself. An additional drain is present within the right upper quadrant along the superior lateral aspect of the liver. There is residual fluid underlying the right hemidiaphragm adjacent to the dome of liver. The drainage catheter is present within a portion of that fluid. A small pocket of gas and fluid is present along the anterior aspect of the medial segment left hepatic lobe on image #80 of series 201 measuring 2.2 x 3.6 cm in size. Trace pelvic free fluid. - No liver mass. Spleen size is prominent, unchanged. Adrenal glands are normal. No focal pancreatic abnormality. Symmetric nephrograms. No renal mass or hydronephrosis. No obstructive urinary calculus. Urinary bladder does not appear excessively distended. - No small bowel obstruction. No appendicitis. Mild diverticulosis without acute diverticulitis. - No abdominal aortic aneurysm. - Degenerative changes of the spine. No acute fractures. - New small amount of right pleural fluid. Areas of new atelectasis within the lung bases. IMPRESSION: 1. Postsurgical changes of cholecystectomy. There is a drain within the gallbladder fossa. No residual collection within the gallbladder fossa itself. 2. Additional drain underlying the right hemidiaphragm. There is some residual fluid underlying the right hemidiaphragm adjacent to the liver and adjacent to that drain. Correlation with drain function is suggested. Is there still output from the drain? 3. Small gas and fluid containing pocket along the anterior aspect of the medial segment of the left hepatic lobe. 4. No biliary ductal dilatation. 5. Small right pleural effusion is new. Increased atelectasis within both lung bases. 6. Trace pelvic ascites. Please note that all CT scans at this facility use dose modulation, iterative reconstruction, and/or weight-based dosing when appropriate to reduce radiation dose to as low as reasonably achievable. Dictated by Manish Muir MD @ 08/31/2020 9:01:[address] Manish Muir @ Aug 31 2020 9:01AM
[2020-08-31 10:57] VITALS: BP 136/78; PULSE 77
== END 2020-08-31 10:57 | disposition home or self-care (01) ==
LOC: MW.ED 05:36
DX: K81.0 Acute cholecystitis (principal); K21.9 Gastro-esophageal reflux disease without esophagitis; R68.0 Hypothermia, not associated with low environmental temperature; E66.9 Obesity, unspecified; Z68.38 Body mass index [BMI] 38.0-38.9, adult; Z79.899 Other long term (current) drug therapy; Z88.1 Allergy status to other antibiotic agents
CPT/HCPCS: 36415; 74177; 76705; 80053; 81003; 83690; 85025; 96374; 96375; 99285; J1170; J2405; J7030; Q9967; 99284

== ENCOUNTER 2022-09-29 10:42 | Emergency (ER) | payer BC ==
[2022-09-29 13:02] VITALS: BP 138/91; PULSE 76
[2022-09-29] MEDS ORDERED: LORazepam 2 MG/ML SDV IVPUSH ONE (13:13)
[2022-09-29] MEDS ORDERED: Sodium Chloride 0.9% 1,000 ML IV ONE (13:13)
[2022-09-29 13:53] LABS: BASOPHILS PERCENT AUTO 0.4 % (0.0-1.5); EOSINOPHILS PERCENT AUTO 0.5 % (0.0-7.0); HEMATOCRIT 45.4 % (38.0-50.0); HEMOGLOBIN 15.1 g/dL (13.0-17.0); LYMPHOCYTES ABSOLUTE AUTO 1.8 K/uL (0.6-2.4); LYMPHOCYTES PERCENT AUTO 24.8 % (16.0-40.0); MEAN CORPUSCULAR HEMOGLOBIN 27.5 pg (27.0-32.0); MEAN CORPUSCULAR HGB CONC 33.3 g/dL (31.0-37.0); MEAN CORPUSCULAR VOLUME 82.7 fL (80.0-98.0); MONOCYTES ABSOLUTE AUTO 0.5 K/uL (0.0-0.8); MONOCYTES PERCENT AUTO 6.2 % (0.0-15.0); NEUTROPHILS PERCENT AUTO 68.1 % (48.0-80.0); NRBC ABSOLUTE 0 K/uL; PLATELET COUNT,PLT 258 K/uL (150-400); RED BLOOD CELL COUNT 5.49 M/uL (4.50-5.90)
[2022-09-29 14:26] LABS: A/G RATIO 1.1 (0.9-1.6); ALANINE AMINOTRANSFERASE,ALT 48 IU/L (14-63); ALBUMIN 4.2 g/dL (3.4-5.0); ALKALINE PHOSPHATASE 84 U/L (46-116); ASPARTATE AMNIOTRANSFERASE,AST 26 IU/L (15-37); BILIRUBIN TOTAL 0.6 mg/dL (0.2-1.0); BLOOD UREA NITROGEN,BUN 13 mg/dL (7.0-18.0); CALCIUM 9.2 mg/dL (8.5-10.1); CARBON DIOXIDE,CO2 27.1 mmol/L (21.0-32.0); CHLORIDE,CL 103 mmol/L (98-107); EST CRCL DRUG DOSING (CG) 113.17 mL/min; ESTIMATED GFR 101 mL/min (>60); ETHANOL BLOOD MEDICAL < 3.0 mg/dL; GLUCOSE RANDOM 101 mg/dL (74-106); POTASSIUM,K 3.8 mmol/L (3.5-5.1); PROTEIN TOTAL,TP 7.9 g/dL (6.4-8.2); SODIUM,NA 139 mmol/L (136-148); TSH ULTRASENSITIVE 1.04 uIU/mL (0.36-3.74)
== END 2022-09-29 15:01 | disposition home or self-care (01) ==
LOC: MW.ED 10:42
DX: R55 Syncope and collapse (principal); K21.9 Gastro-esophageal reflux disease without esophagitis; E66.9 Obesity, unspecified; Z88.8 Allergy status to other drugs, medicaments and biological substances; Z68.39 Body mass index [BMI] 39.0-39.9, adult
CPT/HCPCS: 36415; 80053; 80307; 84443; 84484; 85025; 93005; 96361; 96374; 99284; J2060; J7030; 93010